=== PATIENT | male | born 1990 | race Two or more races ===

== ENCOUNTER 2024-06-19 11:06 | Emergency (ER) | payer MEDICAID, OTHER, SELFPAY ==
[~2024-06-19] VITALS: Ht 167.6 cm; Wt 100.0 kg
[~2024-06-19 11:06] MED LIST: ARIP10TA38 PO; HYDR50CA7 PO; OLAN10TA74 PO
[2024-06-19 11:21] VITALS: TEMP 98.9
[2024-06-19] MEDS ORDERED: IBUP-1506 PO (13:00)
[2024-06-19] MEDS ORDERED: KETOROLAC TROMETHAMINE 30 MG/ML VIAL IM ONE (13:00)
[2024-06-19] MEDS: IBUPROFEN 400 MG TABLET PO ONE (13:26)
[2024-06-19 13:40] VITALS: BP 114/68; PULSE 67; RESP 18
== END 2024-06-19 13:41 | disposition home or self-care (01) ==
LOC: EMS 12:32
DX: S43.401A Unspecified sprain of right shoulder joint, initial encounter (principal); F17.210 Nicotine dependence, cigarettes, uncomplicated; Z88.8 Allergy status to other drugs, medicaments and biological substances; W22.8XXA Striking against or struck by other objects, initial encounter; Y93.89 Activity, other specified; Y92.89 Other specified places as the place of occurrence of the external cause; Y99.8 Other external cause status
CPT/HCPCS: 99283; J1885